=== PATIENT | female | born 1980 | race Two or more races ===

== ENCOUNTER 2025-08-16 15:17 | Inpatient (IN) | payer MEDICAID, OTHER ==
[~2025-08-16] VITALS: Ht 193 cm; Wt 105.4 kg
--- NOTE | 2025-08-16 15:39 | ED.PDOC ---
GI ASSESSMENT HPI Comments 45 y.o female with PMHx of HTN and kidney stones, presents to the ED for a chief complaint of left sided abdominal pain, rectal bleed, nausea and vomiting x 1 week. Patient reports unable to keep anything down and as a results has lost 8 pounds. Patient describes pain as a dull/sharpness sensation that is non radiating and constant. Patient described bleeding as bright red with no clotting or melena noted. She mentions similar symptoms in the past in which she was diagnosed with kidney stones. She denies fever, chills, hematemesis. No substance, alcohol or tobacco use reported. Chief Complaint: Abdominal Pain Time Seen by MD: 15:31 Reviewed Notes: Nurses Notes, Medications, Allergies Allergies: Coded Allergies: Lidocaine (Verified Allergy, Unknown, RASH, 08/16/25) Information Source: Patient Mode of Arrival: Ambulatory Timing: Weeks (1) Duration: Since onset Quality: Aching Vomitus: Hard Stool: Minimal Severity: Moderate Recent: None Recent Hx of: None Pain Location: LUQ, LLQ Modifying Factors: Nothing Associated sign and symptoms: Nausea, Vomiting, Constipation, Abdominal Pain Past Medical History PAST MEDICAL HISTORY: HTN, Kidney Stones Past Medical History (Other): bipolar disorder Surgical History: Cholecystectomy, Hysterectomy, Tubal Ligation SITE MANAGER History: No Pertinent SITE MANAGER History Family History Family History: Family hx of DM Social History Smoker: Non-Smoker Alcohol: Denies ETOH Use Drugs: Denies Drug Use Lives In: Home Constitutional: denies: chills, diaphoresis, fatigue, fever, malaise, sweats, weakness, others EENTM: denies: blurred vision, double vision, ear bleeding, ear discharge, ear drainage, ear pain, ear ringing, eye pain, eye redness, hearing loss, mouth pain, mouth swelling, nasal discharge, nose bleeding, nose congestion, nose pain, photophobia, tearing, throat pain, throat swelling, voice changes, others Respiratory: denies: cough, hemoptysis, orthopnea, SOB at rest, shortness of breath, SOB with excertion, stridor, wheezing, others Cardiovascular: denies: chest pain, dizzy spells, diaphoresis, Dyspnea on exertion, edema, irregular heart beat, left arm pain, lightheadedness, palpitations, PND, syncope, others Gastrointestinal: reports: abdominal pain, constipated, nausea, rectal bleeding , vomiting; denies: abdomen distended, blood streaked bowels, diarrhea, dysphagia, difficulty swallowing, hematemesis, melena, poor appetite, poor fluid intake, rectal pain, others Genitourinary: denies: abnormal vagina bleeding, burning, dyspareunia, dysuria, flank pain, frequency, hematuria, incontinence, pain, , vagina discharge, urgency, others Neurological: denies: dizziness, fainting, headache, left sided numbness, left sided weakness, numbness, paresthesia, pre-existing deficit, right sided numbness, right sided weakness, seizure, speech problems, tingling, tremors, weakness, others Musculoskeletal: denies: back pain, gout, joint pain, joint swelling, muscle pain, muscle stiffness, neck pain, others Integumetry: denies: bruises, change in color, change in hair/nails, dryness, laceration, lesions, lumps, rash, wounds, others Allergic/Immunocompromised: denies: Difficulty Healing, Frequent Infections, Hives, Itching, others Hematologic/Lymphatic: denies: anemia, blood clots, easy bleeding, easy bruising, swollen glands, others Endocrine: denies: excessive hunger, excessive sweating, excessive thirst, excessive urination, flushing, intolerance to cold, intolerance to heat, une xplained weight gain, unexplained weight loss, others Psychiatric: denies: anxiety, bipolar disorder, depression, hopeless, panic disorder, schizophrenia, sleepless, suicidal, others All Other Systems: Reviewed and Negative Physical Exam General Appearance: Moderate Distress HEENT: Normal ENT Inspection, Pharynx Normal, TMs Normal Neck: Full Range of Motion, Non-Tender, Normal, Normal Inspection Respiratory: Chest Non-Tender, Lungs Clear, No Accessory Muscle Use, No Respiratory Distress, Normal Breath Sounds Cardiovascular: No Edema, No JVD, No Murmur, No Gallop, Normal Peripheral Pulses, Regular Rate/Rhythm Breast Exam: Deferred Gastrointestinal: Diffuse, No Organomegaly, No Pulsatile Mass, Normal Bowel Sounds, Soft, Tenderness Genitalia: Deferred Pelvic: Deferred Rectal: Deferred Extremities: No calf tenderness, Normal capillary refill, No pedal edema Musculoskeletal : Apperance: Normal Neurologic: Alert, aircraft technician II-XII nml as Tested, No Motor Deficits, Normal Affect, Normal Mood, No Sensory Deficits Cerebellar Function: Normal Reflexes: Normal Skin: Dry, Normal Color, Warm Lymphatic: No Adenopathy Was a procedure done? Was a procedure done?: No GI differential Dx Differential Diagnosis: Bowel Obstruction, Constipation, Gastritis/PUD, Gastroenteritis, Dehydration, Viral, Anemia, Esophageal Varicies, Stress Ulcer, Kidney Stone X-Ray, Labs, Meds, VS Vital Signs Date Time Temp Pulse Resp B/P (MAP) Pulse Ox O2 Delivery O2 Flow Rate FiO2 08/16/25 15:19 97.8 111 12 121/95 98 97.8 Lab Test 08/16/25 16:28 Range/Units White Blood Count 8.3 4.4-10.8 10^3/uL Red Blood Count 5.19 4.0-5.20 10^6/uL Hemoglobin 15.4 12.2-16.2 g/dL Hematocrit 44.8 36.0-46.0 % Mean Corpuscular Volume 86.2 80.0-100.0 fL Mean Corpuscular Hemoglobin 29.6 28.0-32.0 pg Mean Corpuscular Hemoglobin Concent 34.3 32.0-36.0 g/dL Red Cell Distribution Width 13.4 11.8-14.3 % Platelet Count 309 140-450 10^3/uL Mean Platelet Volume 7.2 6.9-10.8 fL Neutrophils (%) (Auto) 73.2 37.0-80.0 % Lymphocytes (%) (Auto) 18.4 10.0-50.0 % Monocytes (%) (Auto) 7.6 0.0-12.0 % Eosinophils (%) (Auto) 0.0 0.0-7.0 % Basophils (%) (Auto) 0.8 0.0-2.0 % Neutrophils # (Auto) 6.1 1.6-8.6 10 ^3/uL Lymphocytes # (Auto) 1.5 0.4-5.4 10 ^3/uL Monocytes # (Auto) 0.6 0-1.3 10 ^3/uL Eosinophils # (Auto) 0 0-0.8 10 ^3/uL Basophils # (Auto) 0.1 0-0.2 10 ^3/uL Nucleated Red Blood Cells 0.1 % Sodium Level 140 136-145 mmol/L Potassium Level 3.0 L 3.5-5.1 mmol/L Chloride Level 99 98-107 mmol/L Carbon Dioxide Level 29 20-31 mmol/L Anion Gap 12 5-15 Blood Urea Nitrogen 12 9-23 mg/dL Creatinine 1.33 H 0.550-1.02 mg/dL Glomerular Filtration Rate Calc 50 >90 mL/min BUN/Creatinine Ratio 9.0 L 10.0-20.0 Serum Glucose 100 74-106 mg/dL Calcium Level 10.4 8.7-10.4 mg/dL Total Bilirubin 0.4 0.2-1.0 mg/dL Aspartate Amino Transferase (AST) 31 13-40 U/L Alanine Aminotransferase (ALT) 24 7-40 U/L Alkaline Phosphatase 115 46-116 U/L Total Protein 8.0 5.7-8.2 g/dL Albumin 4.6 3.2-4.8 g/dL Lipase 51 12-53 U/L IV Hep-Lock was established The patient's CBC and chemistry panel just show a potassium of 3.0 The patient is being given potassium for the hypokalemia The patient's CAT scan of the abdomen and pelvis shows: IMPRESSION: 1. No acute abdominopelvic abnormality. 2. Nonobstructive left superior renal caliceal stone measuring up to 7 mm. No distal ureteral stone. No hydronephrosis. 3. Mild stool burden. This time, the patient is being admitted to the hospitalist Images Reviewed?: Images reviewed and evaluated by me Time of 1ST Reevaluation: 15:34 Reevaluation 1ST: Unchanged Patient Education/Counseling: Diagnosis, Treatment, Prognosis Family Education/Counseling: No Family Present SEPSIS Sepsis Screen Date sepsis recognized/suspect: Aug 16, 2025 Time Sepsis recognized/suspect: 1522 Recent Procedure: No On Antibiotic Therapy: No Respiratory Rate >20: No Heart Rate >90: Yes Temp<36 C (96.8 F) or >38.3 C: No SBP <90 or MAP <65 mmHG: No New Acute Mental Status Change: No Is the patient on CPAP, BIPAP,: No Physician Orders Urinalysis (08/16/25 15:38) Ct Ab Pel Wo Con-No Oral Or Iv (08/16/25 15:38) Vital Signs Date Time Temp Pulse Resp B/P (MAP) Pulse Ox O2 Delivery O2 Flow Rate FiO2 08/16/25 15:19 97.8 111 12 121/95 98 97.8 Laboratory Tests Test 08/16/25 16:28 White Blood Count 8.3 10^3/uL (4.4-10.8) Departure 1 Departure Time of Disposition: 18:34 Impression: Primary Impression: Intractable abdominal pain Disposition: ADMITTED INPATIENT Admit to: Med Surg Condition: Fair Critical Care Note Critical Care Time?: No Stability Stability form required: Yes Unstable for transfer: ED Physician Assesment (Clinical assesment) I personally scribed for TC ROUSE MD ([email or web address]) on 08/16/25 at 15:39. Electronically submitted by Meseret Be ([facility]). TC ROUSE MD Aug 16, 2025 15:39
[2025-08-16 16:41] LABS: Hematocrit 44.8 % (36.0-46.0); Hemoglobin 15.4 g/dL (12.2-16.2); Mean Corpuscular Hemoglobin 29.6 pg (28.0-32.0); Mean Corpuscular Volume 86.2 fL (80.0-100.0); Nucleated Red Blood Cells % 0.1 %
[2025-08-16 16:57] LABS: Alanine Aminotransferase 24 U/L (7-40); Albumin 4.6 g/dL (3.2-4.8); Alkaline Phosphatase 115 U/L (46-116); Anion Gap 12 (5-15); BUN/Creatinine Ratio 9.0 (10.0-20.0); Bilirubin, Total 0.4 mg/dL (0.2-1.0); Blood Urea Nitrogen 12 mg/dL (9-23); Carbon Dioxide 29 mmol/L (20-31); Chloride 99 mmol/L (98-107); Glucose 100 mg/dL (74-106); Lipase 51 U/L (12-53); Sodium 140 mmol/L (136-145); Total Protein 8.0 g/dL (5.7-8.2)
[2025-08-16 16:58] LABS: Calcium 10.4 mg/dL (8.7-10.4); Potassium 3.0 mmol/L (3.5-5.1)
--- NOTE | 2025-08-16 17:06 | DVH ---
EXAM: CT CT AB PEL WO CON-NO ORAL OR IV INDICATION: left sided abd pain TECHNIQUE: Volumetric multidetector CT images of the abdomen and pelvis were obtained without contrast. All CT scans at this facility use dose modulation, iterative reconstruction, and/or weight based dosing when appropriate to reduce radiation dose to as low as reasonably achievable. COMPARISON: US PELVIC TRANSABDOMINAL ONLY on DOS: 09/12/24 FINDINGS: [LOWER CHEST]: The partially visualized lung bases are clear without a pleural effusion. The cardiac size is normal without pericardial effusion. [LIVER]: Normal hepatic size without suspicious focal lesion. [GALLBLADDER AND BILIARY TREE]: Gallbladder is surgically absent. [SPLEEN]: Unremarkable. [PANCREAS]: Unremarkable. [ADRENAL GLANDS]: Unremarkable [KIDNEYS]: Nonobstructive left superior renal caliceal stone measuring up to 7 mm. No hydronephrosis. No nephroureterolithiasis. No suspicious focal lesion. [BLADDER]: Bladder is decompressed. [REPRODUCTIVE ORGANS]: Hysterectomy. [BOWEL/MESENTERY]: Stomach is normal. No CT evidence of bowel obstruction. Normal appendix. [ASCITES]: Absent [LYMPHADENOPATHY]: No pathologically enlarged lymph nodes by CT size criteria [VASCULATURE]: No aneurysmal dilatation. [ABDOMINAL WALL]: Unremarkable. [MUSCULOSKELETAL]: No acute fracture or aggressive focal osseous lesion. IMPRESSION: 1. No acute abdominopelvic abnormality. 2. Nonobstructive left superior renal caliceal stone measuring up to 7 mm. No distal ureteral stone. No hydronephrosis. 3. Mild stool burden.
[2025-08-16 21:23] LABS: Urine Protein, UAD 2+ (Negative)
[2025-08-16 23:22] VITALS: PULSE 100; RESP 20; O2SAT 97
[2025-08-16] MEDS: ONDANSETRON HCL 4 MG/2 ML VIAL IV PRN (23:46)
[2025-08-17] VITALS (8 sets, daily range): BP systolic 105–124; BP diastolic 54–78; PULSE 77–100; RESP 17–20; TEMP 97.7–98; O2SAT 94–98
[2025-08-17] MEDS: METOCLOPRAMIDE HCL 5MG/ml INJ 2ml VIAL IV ONE (00:10)
[2025-08-17] MEDS: KETOROLAC TROMETH 30 MG/ML 1ML VIAL IV ONE (00:30)
[2025-08-17] MEDS: MORPHINE SULFATE 4 MG/ML SYR/VIAL IV ONE (00:33)
[2025-08-17] MEDS: LORazepam 2MG/ML-1ML VIAL IV ONE (01:45)
[2025-08-17] MEDS ORDERED: HYDROcodone-ACET 10/325MG TAB PO PRN (01:45)
[2025-08-17] MEDS: ACETAMINOPHEN 325 MG TAB PO SCH (01:45)
[2025-08-17] MEDS ORDERED: POTASSIUM CHLORIDE 60 MEQ, LIDOCAINE 1% (LOCAL ANESTH.) 6 ML in SODIUM CHL 0.9% 500 ML IV ONE (01:45)
[2025-08-17] MEDS: SODIUM CHLORIDE 0.9% 1,000 ML IV ONE (02:51)
[2025-08-17] MEDS: MORPHINE SULFATE INJ 2 MG/ml SYRG IV PRN (03:00)
[2025-08-17] MEDS: MORPHINE SULFATE 4 MG/ML SYR/VIAL ONE (03:04)
[2025-08-17] MEDS: SODIUM CHLORIDE 0.9% 1,000 ML IV SCH (04:01)
--- NOTE | 2025-08-17 05:02 | DVHHPRES ---
History of Present Illness Resident Creating Document: BRENDAN DERAS RESIDENT History of Present Illness Lesvia Warner is a 45-year-old female with past medical history of hypertension, bipolar disorder who presented to the hospital with complaints of abdominal pain and urinary urgency since Tuesday. Patient also complains of associated vomiting and decreased appetite. She reports losing 8 lb in the past week. She states that she can not keep any food down. She reports of associated constipation and noticed blood in stool once. She denies any fever cough or diarrhea. PMHx: Hypertension, bipolar disorder PSHx: Cholecystectomy Family history: nonrelevant Social history: denies smoking, alcohol, illicit drugs. Lives with parents Home medication: Wegovy, venlafaxine, Xanax Allergic history: lidocaine Review of Systems Review of Systems General: patient denies fever, fatigue, weaknes, sweating, any recent changes in appetite and weight HEENT: No headaches, visiual changes, hearing loss, tinnitus, nasal congestion and discharge, and sore throat. Cardiovascular: Denies chest pain, palpitations, dyspnea on exertion, orthopnea, or claudication. Respiratory: No cough, and wheezing. Gastrointestinal: complains of abdominal pain and flank pain Genitourinary: complains of urinary urgency Endocrine: No heat or cold intolerance, polydipsia, polyuria, and polyphagia. Neurological: No dizziness, extremity weakness and numbness, tremors, gait disturbance, seizures, and memory impairment. Psychiatric: Denies depression, anxiety,or insomnia. Musculoskeletal: Denies neck pain, stiffness and swelling, back pain, muscle weakness, joint pain, stiffness, swelling, or limited range of motion. Skin: No rashes, itching, skin lesion, changes in hair, nail, skin texture and breast. Hematologic/Lymphatic: Denies easy bruising, bleeding tendencies, or lymph node enlargement. Allergies: Coded Allergies: Lidocaine (Verified Allergy, Unknown, RASH, 08/16/25) Medications Current Medications Medications Dose Ordered Sig/Brown Route Start Time Stop Time Status Last Admin Dose Admin Ondansetron HCl 4 mg Q4HP PRN IV 08/16/25 23:45 08/17/25 00:37 4 MG Ceftriaxone Sodium 50 ml @ 100 mls/hr DAILY@09 IV 08/17/25 09:00 Metoclopramide HCl 5 mg Q8HPRN PRN IV 08/17/25 01:45 Sodium Chloride 1,000 ml @ 125 mls/hr Q8H IV 08/17/25 04:00 08/17/25 04:01 125 MLS/HR Acetaminophen 650 mg Q6HR PO 08/17/25 01:45 Acetaminophen/ Hydrocodone Bitart 1 tab Q6HP PRN PO 08/17/25 01:45 Morphine Sulfate 1 mg Q4HP PRN IV 08/17/25 01:45 08/17/25 03:00 1 MG Pantoprazole Sodium 40 mg DAILY IV 08/17/25 10:00 Clonidine HCl 0.1 mg TID PO 08/17/25 06:00 Prazosin HCl 2 mg Q12HR PO 08/17/25 10:00 Buspirone HCl 10 mg Q12HR PO 08/17/25 10:00 Hydrochlorothiazide 12.5 mg DAILY PO 08/17/25 10:00 Exam Vital Signs Vital Signs Date Time Temp Pulse Resp B/P (MAP) Pulse Ox O2 Delivery O2 Flow Rate FiO2 08/17/25 03:54 77 18 95 Room Air* 0 21 08/17/25 03:00 140/80 08/16/25 23:22 98.1 98.1 Exam General Appearance: Alert, Oriented X3, Cooperative, No acute distress HEENT: Atraumatic, PERRLA, EOMI, Mucous membrane moist/pink Respiratory: Clear to auscultation, Normal air movement Cardiovascular: Regular rate, Normal S1, Normal S2, No murmurs, no chest wall tenderness Abdominal: flank tenderness present, tenderness in the left upper and lower quadrants Extremities: No clubbing, No cyanosis, No edema, Normal pulses, No tenderness/swelling Skin: No rashes, No breakdown, No significant lesion Neuro: Normal gait, Normal speech, Strength at 5/5 X4 ext, Normal tone, Sensation intact, Cranial nerves 3-12 NL, Reflexes 2+ Psych/Mental Status: Mental status NL, Mood NL Labs/Xrays Labs Test 08/16/25 20:57 08/16/25 16:28 Range/Units Urine Color Yellow Yellow Urine Clarity Turbid H Clear Urine pH 6.0 5.0-9.0 Urine Specific [place] 1.033 1.001-1.035 Urine Protein 2+ H Negative Urine Ketones 1+ H Negative Urine Blood 1+ H Negative /uL Urine Nitrite Negative Negative Urine Bilirubin 1+ H Negative Urine Urobilinogen 4 H Negative mg/dL Urine Leukocyte Esterase 2+ Negative /uL Urine RBC 14 0 - 4 /hpf Urine Microscopic WBC 17 H 0-5 /HPF Urine Squamous Epithelial Cells Mod <5 /hpf Urine Bacteria Few H None Seen /hpf Urine Hyaline Casts Few 0 - 2 /lpf Urine Mucus Moderate None Seen Urine Glucose Trace Normal mg/dL White Blood Count 8.3 4.4-10.8 10^3/uL Red Blood Count 5.19 4.0-5.20 10^6/uL Hemoglobin 15.4 12.2-16.2 g/dL Hematocrit 44.8 36.0-46.0 % Mean Corpuscular Volume 86.2 80.0-100.0 fL Mean Corpuscular Hemoglobin 29.6 28.0-32.0 pg Mean Corpuscular Hemoglobin Concent 34.3 32.0-36.0 g/dL Red Cell Distribution Width 13.4 11.8-14.3 % Platelet Count 309 140-450 10^3/uL Mean Platelet Volume 7.2 6.9-10.8 fL Neutrophils (%) (Auto) 73.2 37.0-80.0 % Lymphocytes (%) (Auto) 18.4 10.0-50.0 % Monocytes (%) (Auto) 7.6 0.0-12.0 % Eosinophils (%) (Auto) 0.0 0.0-7.0 % Basophils (%) (Auto) 0.8 0.0-2.0 % Neutrophils # (Auto) 6.1 1.6-8.6 10 ^3/uL Lymphocytes # (Auto) 1.5 0.4-5.4 10 ^3/uL Monocytes # (Auto) 0.6 0-1.3 10 ^3/uL Eosinophils # (Auto) 0 0-0.8 10 ^3/uL Basophils # (Auto) 0.1 0-0.2 10 ^3/uL Nucleated Red Blood Cells 0.1 % Sodium Level 140 136-145 mmol/L Potassium Level 3.0 L 3.5-5.1 mmol/L Chloride Level 99 98-107 mmol/L Carbon Dioxide Level 29 20-31 mmol/L Anion Gap 12 5-15 Blood Urea Nitrogen 12 9-23 mg/dL Creatinine 1.33 H 0.550-1.02 mg/dL Glomerular Filtration Rate Calc 50 >90 mL/min BUN/Creatinine Ratio 9.0 L 10.0-20.0 Serum Glucose 100 74-106 mg/dL Calcium Level 10.4 8.7-10.4 mg/dL Total Bilirubin 0.4 0.2-1.0 mg/dL Aspartate Amino Transferase (AST) 31 13-40 U/L Alanine Aminotransferase (ALT) 24 7-40 U/L Alkaline Phosphatase 115 46-116 U/L Total Protein 8.0 5.7-8.2 g/dL Albumin 4.6 3.2-4.8 g/dL Lipase 51 12-53 U/L SEPSIS Sepsis Screen Date sepsis recognized/suspect: Aug 16, 2025 Time Sepsis recognized/suspect: 2324 Recent Procedure: No On Antibiotic Therapy: No Respiratory Rate >20: No Heart Rate >90: No Temp<36 C (96.8 F) or >38.3 C: No SBP <90 or MAP <65 mmHG: No New Acute Mental Status Change: No Is the patient on CPAP, BIPAP,: No Physician Orders Allergies (08/16/25 23:33) Code Status (08/16/25 23:33) Ondansetron Hcl (Zofran) (08/16/25 23:45) Complete Blood Count (08/17/25 04:00) Npo (Nothing By Mouth) Diet (08/17/25 Breakfast) Condition: Fair (08/16/25 23:33) Admit (08/16/25 23:48) Blood Culture (08/17/25 01:22) Urine Bacterial Culture (08/17/25 01:22) Kidney (08/17/25 01:22) Test, Urine (08/17/25 01:22) Urine Sodium (08/17/25 01:22) Urine Protein/Creatinine Ratio (08/17/25 ) Urine Protein (08/17/25 01:22) Parathyroid Hormone Intact (08/17/25 01:22) Phosphorus (08/17/25 01:40) Drug Screen (08/17/25 01:40) Blood Alcohol (08/17/25 01:40) PTPTT (08/17/25 01:40) Stool Occult Blood (08/17/25 01:40) Magnesium (08/17/25 01:40) Comprehensive Metabolic Panel (08/17/25 04:00) Ceftriaxone 1gm/50ml (Rocephin) (08/17/25 09:00) Metoclopramide Injection (Reglan Injecti (08/17/25 01:45) Potassium Chloride (Potassium Chloride). (08/17/25 01:45) Sodium Chloride 0.9% (08/17/25 04:00) Acetaminophen Tablet (Tylenol Tablet) (08/17/25 01:45) Hydrocodone-Acet 10/325mg Tab (Parker 10/ (08/17/25 01:45) Morphine Sulfate Injection (08/17/25 01:45) Pantoprazole (Protonix) (08/17/25 10:00) Clonidine Hcl Tablet (Catapres Tablet) (08/17/25 06:00) Prazosin Hcl Capsule (Minipres Capsule) (08/17/25 10:00) Buspirone Hcl Tablet (Buspar Tablet) (08/17/25 10:00) Hydrochlorothiazide Tablet (Hydrochlorot (08/17/25 10:00) Vital Signs Date Time Temp Pulse Resp B/P (MAP) Pulse Ox O2 Delivery O2 Flow Rate FiO2 08/17/25 03:54 77 18 95 Room Air* 0 21 08/17/25 03:00 97 16 140/80 08/17/25 01:03 103 18 140/101 08/17/25 00:33 102 20 122/78 08/16/25 23:22 98.1 102 18 132/78 (96) 97 98.1 08/16/25 23:22 100 20 97 Room Air* 0 21 Medications Medications Dose Ordered Sig/Brown Route Start Time Stop Time Status Last Admin Dose Admin Metoclopramide HCl 5 mg ONCE ONCE IV 08/16/25 23:45 08/16/25 23:46 DC 08/17/25 00:10 5 MG Morphine Sulfate 1 mg Q4HP PRN IV 08/17/25 01:45 08/17/25 03:00 1 MG Morphine Sulfate 4 mg ONCE ONCE IV 08/17/25 00:30 08/17/25 00:31 DC 08/17/25 00:33 4 MG Ondansetron HCl 4 mg Q4HP PRN IV 08/16/25 23:45 08/17/25 00:37 4 MG Sodium Chloride 1,000 ml @ 125 mls/hr Q8H IV 08/17/25 04:00 08/17/25 04:01 125 MLS/HR Sodium Chloride 1,000 ml @ 1,000 mls/hr Q1H ONCE IV 08/17/25 01:45 08/17/25 02:44 DC 08/17/25 02:51 1,000 MLS/HR Assessment/Plan Assessment/Plan Assessment and plan Acute complicated UTI JAVY due to VMN History of renal calculi Blood culture, urine culture IV Rocephin Reglan IV fluids Pain management with Tylenol, Parker and morphine Renal ultrasound Urine sodium and protein, protein creatinine ratio Parathyroid hormone, phosphorus Hypokalemia Potassium 3 Repleted Follow up potassium levels History of cervical cancer status post hysterectomy Follow up with PCP on discharge Essential hypertension Continue home medications Target in-hospital blood pressure below 140/90 Bipolar disorder Continue home medications PUD prophylaxis: protonix 40mg DVT prophylaxis: Ambulatory Barriers to discharge: Medical diagnosis and management in progress. Patient lives with family. Independent for ADL. PCP: Dr. Pandey Specialist Relevent To Admission: None Case discussed with Dr. Johnson. Code Status: Full Code. Complex patient care discussion needed. Spend total 33 minutes for bedside assessment, case discussion and management. Plan discussed with: Patient My Orders Orders - BRENDAN DERAS RESIDENT Procedure Category Date Status Time Allergies KASSIDY 08/16/25 In Process 23:33 Code Status CODE 08/16/25 Transmitted 23:33 Ondansetron Hcl PHA 08/16/25 In Process (Zofran) 23:45 Complete Blood Count LAB 08/17/25 Logged 04:00 Npo (Nothing By DIET 08/17/25 Transmitted Mouth) Diet Breakfast Condition: Fair KASSIDY 08/16/25 In Process 23:33 Blood Culture YONATAN 08/17/25 Uncollected 01:22 Urine Bacterial YONATAN 08/17/25 Uncollected Culture 01:22 Kidney US 08/17/25 Logged 01:22 Test, Urine LAB 08/17/25 Logged 01:22 Urine Sodium LAB 08/17/25 Logged 01:22 Urine LAB 08/17/25 Logged Protein/Creatinine Urine Protein LAB 08/17/25 Logged 01:22 Parathyroid Hormone LAB 08/17/25 Logged Intact 01:22 Phosphorus LAB 08/17/25 Logged 01:40 Drug Screen LAB 08/17/25 Logged 01:40 Blood Alcohol LAB 08/17/25 Logged 01:40 PTPTT LAB 08/17/25 Logged 01:40 Stool Occult Blood LAB 08/17/25 Uncollected 01:40 Magnesium LAB 08/17/25 Logged 01:40 Comprehensive LAB 08/17/25 Logged Metabolic Panel 04:00 Ceftriaxone 1gm/50ml PHA 08/17/25 In Process (Rocephin) 09:00 Metoclopramide PHA 08/17/25 In Process Injection (Reglan 01:45 Potassium Chloride PHA 08/17/25 In Process (Potassium Chloride). 01:45 Sodium Chloride 0.9% PHA 08/17/25 In Process 04:00 Acetaminophen Tablet PHA 08/17/25 In Process (Tylenol Tablet) 01:45 Hydrocodone-Acet PHA 08/17/25 In Process 10/325mg Tab (Parker 01:45 Morphine Sulfate PHA 08/17/25 In Process Injection 01:45 Pantoprazole PHA 08/17/25 In Process (Protonix) 10:00 Clonidine Hcl Tablet PHA 08/17/25 In Process (Catapres Tablet) 06:00 Prazosin Hcl Capsule PHA 08/17/25 In Process (Minipres Capsule) 10:00 Buspirone Hcl Tablet PHA 08/17/25 In Process (Buspar Tablet) 10:00 Hydrochlorothiazide PHA 08/17/25 In Process Tablet (Hydrochlorot 10:00 Visit Coding STANDARD RES Billing Provider: KETAN JOHNSON MD Date of Service if different f: Aug 17, 2025 Common Visit Codes: 96459-[id number] INP/OBS CARE (HIGH) Secondary Visit Codes: 83385-[id number] CARE PLAN 30 MINUTES BRENDAN DERAS RESIDENT Aug 17, 2025 05:02 MAZIN FREEMAN DO Aug 19, 2025 07:41 KETAN JOHNSON MD Aug 23, 2025 10:43
[2025-08-17 07:36] LABS: Hematocrit 39.8 % (36.0-46.0); Hemoglobin 13.6 g/dL (12.2-16.2); Mean Corpuscular Hemoglobin 29.4 pg (28.0-32.0); Mean Corpuscular Volume 85.9 fL (80.0-100.0); Nucleated Red Blood Cells % 0.0 %
[2025-08-17 07:55] LABS: INR 1.15 (0.9-1.15); Partial Thromboplastin Time 31.8 SEC (24.5-34.5); Prothrombin Time 12.0 sec (9.3-11.8)
[2025-08-17 08:49] LABS: Alanine Aminotransferase 20 U/L (7-40); Alkaline Phosphatase 101 U/L (46-116); Anion Gap 12 (5-15); BUN/Creatinine Ratio 10.8 (10.0-20.0); Blood Urea Nitrogen 13 mg/dL (9-23); Calcium 8.8 mg/dL (8.7-10.4); Carbon Dioxide 28 mmol/L (20-31); Chloride 101 mmol/L (98-107); Glucose 94 mg/dL (74-106); Magnesium 1.7 mg/dL (1.6-2.6); Sodium 141 mmol/L (136-145); Total Protein 6.4 g/dL (5.7-8.2)
[2025-08-17 08:50] LABS: Albumin 3.8 g/dL (3.2-4.8)
[2025-08-17 08:51] LABS: Bilirubin, Total 0.5 mg/dL (0.2-1.0); Potassium 2.9 mmol/L (3.5-5.1)
--- NOTE | 2025-08-17 10:38 | DVH ---
US KIDNEY COMPARISON: None INDICATION: JAVY TECHNIQUE: Ultrasound exam of the retroperitoneum was performed. FINDINGS: The right kidney is 11.6 cm. The left kidney is 10.2 cm. No collecting system dilatation. The prevoid volume of the bladder measures 80 cc. IMPRESSION: No collecting system dilatation.
[2025-08-17] MEDS: MORPHINE SULFATE 4 MG/ML SYR/VIAL IV PRN (11:09)
[2025-08-17] MEDS: PRAZOSIN HCL 1 MG CAP PO SCH (11:14)
[2025-08-17] MEDS: hydroCHLOROthiazide 25 MG TAB PO SCH (11:15)
[2025-08-17] MEDS: PANTOPRAZOLE 40 MG/10 ML VIAL INJ IV SCH (11:15)
[2025-08-17] MEDS: METOCLOPRAMIDE HCL 5MG/ml INJ 2ml VIAL IV PRN (13:54)
[2025-08-17] MEDS: POTASSIUM CHL 20 Meq TABLET PO SCH (17:59)
[2025-08-17 18:00] LABS: Protein, Urine 39.8 mg/dL (1-14)
[2025-08-17 18:30] LABS: Cannabinoid Screen, Urine Pos (NEGATIVE)
[2025-08-17 19:26] LABS: Amphetamine Screen, Urine Neg (NEGATIVE); Barbiturate Scree,Urine Neg (NEGATIVE); Benzodiazephine Screen, Urine Pos (NEGATIVE); Cocaine Screen, Urine Neg (NEGATIVE); Opiate Scree,Urine Pos (NEGATIVE); Phencyclidine Screen, Urine Neg (NEGATIVE)
[2025-08-18] VITALS (8 sets, daily range): BP systolic 101–131; BP diastolic 57–79; PULSE 80–97; RESP 17–20; TEMP 97–97.9; O2SAT 97–98
[2025-08-18] MEDS: MELATONIN 5 MG TAB PO ONE (21:15)
[2025-08-19] VITALS (7 sets, daily range): BP systolic 110–134; BP diastolic 61–85; PULSE 73–82; RESP 16–20; TEMP 97.3–98.3; O2SAT 97–99
--- NOTE | 2025-08-19 07:37 | DVHPN2 ---
Reviewed: Care Plan, H&P, Labs, Medications, Previous Orders Changes from previous H/P or p: No Changes General: Per HPI Objective Vitals Vital Signs Date Time Temp Pulse Resp B/P (MAP) Pulse Ox O2 Delivery O2 Flow Rate FiO2 08/19/25 06:17 108/61 08/19/25 05:00 97.7 75 17 99 97.7 08/18/25 20:00 Room Air* 0 21 Intake/Output Intake and Output 08/19/25 07:00 Intake Total 225 ml Balance 225 ml Intake Oral 225 ml # Voids 3 Medications Current Medications Medications Dose Ordered Sig/Brown Route Start Time Stop Time Status Last Admin Dose Admin Ondansetron HCl 4 mg Q4HP PRN IV 08/16/25 23:45 08/18/25 11:08 4 MG Ceftriaxone Sodium 50 ml @ 100 mls/hr DAILY@09 IV 08/17/25 09:00 08/18/25 11:10 100 MLS/HR Metoclopramide HCl 5 mg Q8HPRN PRN IV 08/17/25 01:45 08/17/25 21:47 5 MG Sodium Chloride 1,000 ml @ 125 mls/hr Q8H IV 08/17/25 04:00 08/19/25 05:15 125 MLS/HR Acetaminophen 650 mg Q6HR PO 08/17/25 01:45 08/19/25 05:16 650 MG Acetaminophen/ Hydrocodone Bitart 1 tab Q6HP PRN PO 08/17/25 01:45 Pantoprazole Sodium 40 mg DAILY IV 08/17/25 10:00 08/18/25 11:10 40 MG Clonidine HCl 0.1 mg TID PO 08/17/25 06:00 08/19/25 05:17 0.1 MG Prazosin HCl 2 mg Q12HR PO 08/17/25 10:00 08/18/25 21:20 2 MG Buspirone HCl 10 mg Q12HR PO 08/17/25 10:00 08/18/25 21:16 10 MG Hydrochlorothiazide 12.5 mg DAILY PO 08/17/25 10:00 08/18/25 11:11 12.5 MG Morphine Sulfate 1 mg Q4HP PRN IV 08/17/25 09:45 08/18/25 04:49 1 MG Laboratory Results Laboratory Tests 08/17/25 07:24 08/18/25 05:02 Urinalysis Test 08/16/25 20:57 08/17/25 17:32 08/17/25 17:34 08/17/25 17:35 Urine Color Yellow (Yellow) Urine Clarity Turbid (Clear) H Urine pH 6.0 (5.0-9.0) Urine Specific [place] 1.033 (1.001-1.035) Urine Protein 2+ (Negative) H Urine Ketones 1+ (Negative) H Urine Blood 1+ /uL (Negative) H Urine Nitrite Negative (Negative) Urine Bilirubin 1+ (Negative) H Urine Urobilinogen 4 mg/dL (Negative) H Urine Leukocyte Esterase 2+ /uL (Negative) Urine RBC 14 /hpf (0 - 4) Urine Microscopic WBC 17 /HPF (0-5) H Urine Squamous Epithelial Cells Mod /hpf (<5) Urine Bacteria Few /hpf (None Seen) H Urine Hyaline Casts Few /lpf (0 - 2) Urine Mucus Moderate (None Seen) Urine Glucose Trace mg/dL (Normal) Urine Sodium 73 mmol/L (40-220) Urine Creatinine 252.70 mg/dL (30.0-125.0) H Urine Protein/Creatinine Ratio 0.16 Urine Total Protein 39.8 mg/dL (1-14) H Urine Test Negative (Negative) Microbiology Microbiology Date/Time Source Procedure Growth Status 08/17/25 09:00 Blood Blood Culture - Preliminary NO GROWTH AFTER 24 HOURS OF INCUBATION. Resulted 08/16/25 20:57 Voided Urine Urine Culture - Preliminary Resulted Assessment/Plan Assessment/Plan TimmyLesvia is a 45-year-old female with past medical history of hypertension, bipolar disorder who presented to the hospital with complaints of abdominal pain and urinary urgency since Tuesday. Patient also complains of associated vomiting and decreased appetite. She reports losing 8 lb in the past week. She states that she can not keep any food down. She reports of associated constipation and noticed blood in stool once. She denies any fever cough or diarrhea. JAVY due to [facility] History of renal calculi Blood culture, urine culture IV Rocephin Reglan IV fluids Pain management with Tylenol, [place] and morphine Renal ultrasound Urine sodium and protein, protein creatinine ratio Parathyroid hormone, phosphorus Hypokalemia Potassium 3 Repleted Follow up potassium levels History of cervical cancer status post hysterectomy Follow up with PCP on discharge Essential hypertension Continue home medications Target in-hospital blood pressure below 140/90 Bipolar disorder Continue home medications 08/19/25 improving still has abd pain, advancing diet consult to urology Plan discussed with: Patient Date of Service: Aug 18, 2025 Billing Provider: MAZIN FREEMAN DO Common Visit Codes: [id number] INP/OBS CARE(HIGH) MAZIN FREEMAN DO Aug 19, 2025 07:37
[2025-08-19] MEDS: SODIUM CHLORIDE 0.9% 1,000 ML IV ONE (08:23)
[2025-08-19] MEDS ORDERED: BREX1TAB4 PO (08:36)
[2025-08-19] MEDS ORDERED: ATOM25CA PO (08:36)
[2025-08-19] MEDS ORDERED: ALPR1TAB7 PO (08:36)
[2025-08-19] MEDS ORDERED: VENL225T20 PO (08:36)
[2025-08-19] MEDS ORDERED: LUMA42CA PO (08:36)
[2025-08-19] MEDS ORDERED: HYDR-3682 PO (08:36)
[2025-08-19] MEDS: ALPRAZolam 0.5 MG TAB PO SCH (09:34)
[2025-08-19] MEDS ORDERED: hydrOXYzine 25 MG TAB or CAP PO PRN (16:15)
[2025-08-19] MEDS: SODIUM CHLORIDE 0.9% 1,000 ML IV SCH (16:36)
[2025-08-19] MEDS ORDERED: ACETAMINOPHEN 325 MG TAB PO PRN (16:45)
--- NOTE | 2025-08-19 16:55 | DVHPN2 ---
Subjective Patient reports her abdominal pain to be in her left upper quadrant, reporting it to be mild now. Reviewed: Care Plan, H&P, Labs, Medications, Previous Orders Changes from previous H/P or p: No Changes General: Per HPI Objective Vitals Vital Signs Date Time Temp Pulse Resp B/P (MAP) Pulse Ox O2 Delivery O2 Flow Rate FiO2 08/19/25 13:49 127/85 08/19/25 13:12 97.7 80 20 99 97.7 08/19/25 08:00 Room Air* 0 21 Intake/Output Intake and Output 08/19/25 07:00 Intake Total 225 ml Balance 225 ml Intake Oral 225 ml # Voids 3 General Appearance: Alert, Oriented X3, Cooperative, mild distress HEENT: Atraumatic, PERRLA Lungs: Clear to auscultation, Normal air movement Cardiovascular: Normal S1, Normal S2 Abdomen: Normal bowel sounds, Soft, No tenderness, No hepatospenomegaly, No masses Musculoskeletal: Normal sensory function, Normal motor function Neuro: Normal gait, Normal speech Skin: Dry, Intact Psych/Mental Status: Mental status NL, Mood NL Medications Current Medications Medications Dose Ordered Sig/Brown Route Start Time Stop Time Status Last Admin Dose Admin Ondansetron HCl 4 mg Q4HP PRN IV 08/16/25 23:45 08/18/25 11:08 4 MG Ceftriaxone Sodium 50 ml @ 100 mls/hr DAILY@09 IV 08/17/25 09:00 08/19/25 09:28 100 MLS/HR Acetaminophen/ Hydrocodone Bitart 1 tab Q6HP PRN PO 08/17/25 01:45 Pantoprazole Sodium 40 mg DAILY IV 08/17/25 10:00 08/19/25 09:29 40 MG Clonidine HCl 0.1 mg TID PO 08/17/25 06:00 08/19/25 13:49 0.1 MG Prazosin HCl 2 mg Q12HR PO 08/17/25 10:00 08/19/25 09:35 2 MG Buspirone HCl 10 mg Q12HR PO 08/17/25 10:00 08/19/25 09:32 10 MG Hydrochlorothiazide 12.5 mg DAILY PO 08/17/25 10:00 08/19/25 09:33 12.5 MG Morphine Sulfate 1 mg Q4HP PRN IV 08/17/25 09:45 08/18/25 04:49 1 MG Alprazolam 1 mg DAILY PO 08/19/25 10:00 08/19/25 09:34 1 MG Sodium Chloride 1,000 ml @ 75 mls/hr [id number] IV 08/19/25 16:15 08/19/25 16:36 75 MLS/HR Venlafaxine HCl 225 mg DAILY PO 08/20/25 10:00 Hydroxyzine Pamoate 25 mg Q8HP PRN PO 08/19/25 16:15 Acetaminophen 650 mg Q6HR PRN PO 08/19/25 16:45 Laboratory Results Laboratory Tests 08/17/25 07:24 08/18/25 05:02 Urinalysis Test 08/16/25 20:57 08/17/25 17:32 08/17/25 17:34 08/17/25 17:35 Urine Color Yellow (Yellow) Urine Clarity Turbid (Clear) H Urine pH 6.0 (5.0-9.0) Urine Specific [place] 1.033 (1.001-1.035) Urine Protein 2+ (Negative) H Urine Ketones 1+ (Negative) H Urine Blood 1+ /uL (Negative) H Urine Nitrite Negative (Negative) Urine Bilirubin 1+ (Negative) H Urine Urobilinogen 4 mg/dL (Negative) H Urine Leukocyte Esterase 2+ /uL (Negative) Urine RBC 14 /hpf (0 - 4) Urine Microscopic WBC 17 /HPF (0-5) H Urine Squamous Epithelial Cells Mod /hpf (<5) Urine Bacteria Few /hpf (None Seen) H Urine Hyaline Casts Few /lpf (0 - 2) Urine Mucus Moderate (None Seen) Urine Glucose Trace mg/dL (Normal) Urine Sodium 73 mmol/L (40-220) Urine Creatinine 252.70 mg/dL (30.0-125.0) H Urine Protein/Creatinine Ratio 0.16 Urine Total Protein 39.8 mg/dL (1-14) H Urine Test Negative (Negative) Microbiology Microbiology Date/Time Source Procedure Growth Status 08/17/25 09:00 Blood Blood Culture - Preliminary NO GROWTH AFTER 48 HOURS OF INCUBATION. Resulted 08/16/25 20:57 Voided Urine Urine Culture - Final Complete Labs and/or images reviewed: Labs reviewed by me, Image(s) reviewed by me Assessment/Plan Assessment/Plan Impression: -abdominal pain, questionable gastroenteritis -nonobstructive nephrolithiasis -hypokalemia -intractable nausea and vomiting -obesity -bipolar disorder -anxiety disorder Plan: -advance diet -urology consultation pending -potassium replacement -continue current antibiotic therapy -PPI -restart antidepressants, anxiolytics -repeat labs in a.m. Total time spent with patient discussing and formulating plan of care: 35 minutes. This medical document was created using an electronic medical record system with [employer] dictation system. Although this document has been carefully reviewed, there may still be some phonetic and typographical errors. These areas are purely typographical due to imperfections of the software programs, and do not reflect any compromise in the patient's medical care. Plan discussed with: Patient, Other (RN) My Orders Orders - SONNY SAUNDERS NP Procedure Category Date Status Time * Urology Consult CONS 08/19/25 Transmitted 16:09 Sodium Chloride 0.9% PHA 08/19/25 In Process 16:15 Venlafaxine Xr PHA 08/20/25 In Process (Effexor Xr) 10:00 Hydroxyzine Oral PHA 08/19/25 In Process (Vistaril Oral) 16:15 Basic Metabolic Panel LAB 08/20/25 Verified 04:00 Magnesium LAB 08/20/25 Verified 04:00 Regular Diet DIET 08/19/25 Verified Dinner Acetaminophen Tablet PHA 08/19/25 In Process (Tylenol Tablet) 16:45 Date of Service: Aug 19, 2025 Billing Provider: SONNY SAUNDERS NP Common Visit Codes: [id number] INP/OBS CARE(HIGH) SONNY SAUNDERS NP Aug 19, 2025 16:55
[2025-08-20 01:00] VITALS: BP 108/75; PULSE 71; RESP 16; TEMP 98.1; O2SAT 96
[2025-08-20 05:00] VITALS: BP 116/80; PULSE 76; RESP 16; TEMP 98.2; O2SAT 97
[2025-08-20 06:32] LABS: Chloride 105 mmol/L (98-107)
[2025-08-20 06:33] LABS: Anion Gap 10 (5-15); Carbon Dioxide 27 mmol/L (20-31); Sodium 142 mmol/L (136-145)
[2025-08-20 06:39] LABS: Glucose 84 mg/dL (74-106)
[2025-08-20 06:48] LABS: BUN/Creatinine Ratio 6.4 (10.0-20.0); Blood Urea Nitrogen < 5 mg/dL (9-23); Calcium 8.3 mg/dL (8.7-10.4); Magnesium 1.4 mg/dL (1.6-2.6); Potassium 2.9 mmol/L (3.5-5.1)
[2025-08-20 09:16] VITALS: BP 131/74; PULSE 69; RESP 20; TEMP 97.8; O2SAT 97
[2025-08-20] MEDS: POTASSIUM EFFERVESENT TAB 25 MEQ PO SCH (12:48)
[2025-08-20] MEDS: MAGNESIUM SULFATE 1GM/100ML 100 ML IV SCH (12:53)
--- NOTE | 2025-08-20 13:06 | DVHDS2 ---
Discharge Summary Date of Admission Aug 16, 2025 at 23:33 Date of Discharge: Aug 20, 2025 Admitting Diagnosis Acute complicated UTI Labs/Diagnostic Data: Laboratory Results Test 08/20/25 05:11 08/17/25 17:35 08/17/25 17:34 08/17/25 17:32 Sodium Level 142 mmol/L (136-145) Potassium Level 2.9 mmol/L (3.5-5.1) Chloride Level 105 mmol/L (98-107) Carbon Dioxide Level 27 mmol/L (20-31) Anion Gap 10 (5-15) Blood Urea Nitrogen < 5 mg/dL (9-23) Creatinine 0.78 mg/dL (0.550-1.02) Glomerular Filtration Rate Calc 95 mL/min (>90) BUN/Creatinine Ratio 6.4 (10.0-20.0) Serum Glucose 84 mg/dL (74-106) Calcium Level 8.3 mg/dL (8.7-10.4) Magnesium Level 1.4 mg/dL (1.6-2.6) Urine Test Negative (Negative) Urine Creatinine 252.70 mg/dL (30.0-125.0) Urine Protein/Creatinine Ratio 0.16 Urine Total Protein 39.8 mg/dL (1-14) Urine Sodium 73 mmol/L (40-220) Test 08/17/25 17:30 08/17/25 07:24 08/16/25 20:57 08/16/25 16:28 Urine Opiates Screen Pos (NEGATIVE) Urine Fentanyl Screen Neg (NEGATIVE) Urine Barbiturates Screen Neg (NEGATIVE) Urine Phencyclidine Screen Neg (NEGATIVE) Urine Amphetamines Screen Neg (NEGATIVE) Urine Benzodiazepines Screen Pos (NEGATIVE) Urine Cocaine Screen Neg (NEGATIVE) Urine Cannabinoids Screen Pos (NEGATIVE) White Blood Count 9.4 10^3/uL (4.4-10.8) Red Blood Count 4.63 10^6/uL (4.0-5.20) Hemoglobin 13.6 g/dL (12.2-16.2) Hematocrit 39.8 % (36.0-46.0) Mean Corpuscular Volume 85.9 fL (80.0-100.0) Mean Corpuscular Hemoglobin 29.4 pg (28.0-32.0) Mean Corpuscular Hemoglobin Concent 34.2 g/dL (32.0-36.0) Red Cell Distribution Width 13.2 % (11.8-14.3) Platelet Count 235 10^3/uL (140-450) Mean Platelet Volume 7.1 fL (6.9-10.8) Neutrophils (%) (Auto) 77.6 % (37.0-80.0) Lymphocytes (%) (Auto) 14.4 % (10.0-50.0) Monocytes (%) (Auto) 7.6 % (0.0-12.0) Eosinophils (%) (Auto) 0.0 % (0.0-7.0) Basophils (%) (Auto) 0.4 % (0.0-2.0) Neutrophils # (Auto) 7.3 10 ^3/uL (1.6-8.6) Lymphocytes # (Auto) 1.4 10 ^3/uL (0.4-5.4) Monocytes # (Auto) 0.7 10 ^3/uL (0-1.3) Eosinophils # (Auto) 0 10 ^3/uL (0-0.8) Basophils # (Auto) 0 10 ^3/uL (0-0.2) Nucleated Red Blood Cells 0.0 % Prothrombin Time 12.0 sec (9.3-11.8) Prothrombin Time INR 1.15 (0.9-1.15) Activated Partial Thromboplast Time 31.8 SEC (24.5-34.5) Phosphorus Level 3.5 mg/dL (2.4-5.1) Total Bilirubin 0.5 mg/dL (0.2-1.0) Aspartate Amino Transferase (AST) 29 U/L (13-40) Alanine Aminotransferase (ALT) 20 U/L (7-40) Alkaline Phosphatase 101 U/L (46-116) Total Protein 6.4 g/dL (5.7-8.2) Albumin 3.8 g/dL (3.2-4.8) Parathyroid Hormone (Intact) 116.0 pg/mL (18.4-80.1) Plasma/Serum Blood Alcohol < 3.0 mg/dL (<10) Urine Color Yellow (Yellow) Urine Clarity Turbid (Clear) Urine pH 6.0 (5.0-9.0) Urine Specific [place] 1.033 (1.001-1.035) Urine Protein 2+ (Negative) Urine Ketones 1+ (Negative) Urine Blood 1+ /uL (Negative) Urine Nitrite Negative (Negative) Urine Bilirubin 1+ (Negative) Urine Urobilinogen 4 mg/dL (Negative) Urine Leukocyte Esterase 2+ /uL (Negative) Urine RBC 14 /hpf (0 - 4) Urine Microscopic WBC 17 /HPF (0-5) Urine Squamous Epithelial Cells Mod /hpf (<5) Urine Bacteria Few /hpf (None Seen) Urine Hyaline Casts Few /lpf (0 - 2) Urine Mucus Moderate (None Seen) Urine Glucose Trace mg/dL (Normal) Lipase 51 U/L (12-53) Other Laboratory Tests 08/20/25 05:11 08/17/25 07:24 Brief Hx & Hospital Course: History of Present Illness Lesvia Warner is a 45-year-old female with past medical history of hypertension, bipolar disorder who presented to the hospital with complaints of abdominal pain and urinary urgency since Tuesday. Patient also complains of associated vomiting and decreased appetite. She reports losing 8 lb in the past week. She states that she can not keep any food down. She reports of associated constipation and noticed blood in stool once. She denies any fever cough or diarrhea. Course of hospitalization: Patient was given bowel rest, aggressive IV hydration as well as antibiotic therapy. Patient's abdominal pain has improved. Once I took over care from Dr. Barbosa, I appreciated the patient's pain was noted to be in the left upper quadrant, not left flank pain. CT scan did show nonobstructive nephrolithiasis. Discussion was made with the patient regarding future plans to treat this. Patient was noted to have UTI on urinalysis with the patient remaining free of fevers as well as leukocytosis. Patient will be discharged home on antibiotic therapy given she is able to tolerate oral intake without any issues. She will be continued on ciprofloxacin 500 mg p.o. b.i.d. for an additional five days. Once the patient's past potassium and magnesium has been repleted today with repeat lab work, she will be discharged home. She is instructed to follow up with her psychiatrist was PCP in 1-2 weeks. Patient was agreeable with discharge plan. All questions answered. Physical examination General: Alert and Oriented x3. No acute distress. Well-nourished. Eyes: EOMI. Anicteric. HENT: Moist mucous membranes. Lungs: Clear to auscultation bilaterally. No accessory muscle use. Cardiovascular: Regular rate and rhythm. No murmur. No JVD. Abdomen: Soft, non-tender and non-distended. No palpable masses. Extremities: No edema. Non-tender. Skin: No rashes or lesions. Warm. Neurologic: No focal neurological deficits. CN II-XII grossly intact, but not individually tested. Psychiatric: Cooperative. Appropriate mood and affect. Total time spent with patient discussing and formulating plan of care: 35 minutes. This medical document was created using an electronic medical record system with [employer] system. Although this document has been carefully reviewed, there may still be some phonetic and typographical errors. These areas are purely typographical due to imperfections of the software programs, and do not reflect any compromise in the patient's medical care. Condition at Discharge: Fair Final Diagnosis/Problems List -abdominal pain, questionable gastroenteritis -nonobstructive nephrolithiasis -hypokalemia -intractable nausea and vomiting -obesity -bipolar disorder -anxiety disorder -complicated cystitis Discharge Disposition: Home Discharge Instruct/Medications Diet: Regular Activity: No Restrictions, As Tolerated Follow Up/Referral: PCP in 1-2 weeks Psychiatry at next scheduled appointment Medications: Ciprofloxacin 500 mg p.o. b.i.d. x5 days Continue all home medications Scheduled Alprazolam (Alprazolam), 1 MG PO DAILY, (Reported) Atomoxetine Hydrochloride (Strattera), 1 CAP PO DAILY, (Reported) Brexpiprazole (Rexulti), 2 MG PO QPM, (Reported) Hydroxyzine Hcl (Hydroxyzine Hcl), 25 MG PO DAILY, (Reported) Lumateperone Tosylate (Caplyta), 42 MG PO QPM, (Reported) Venlafaxine Hcl (Venlafaxine Hcl Er), 225 MG PO DAILY, (Reported) 36 Discharge Statement: "Patient was advised to return to the ER or call 911 if any headaches, dizziness, shortness of breath, chest pain, abdominal pain, bleeding, fevers, or worsening of medical condition. Patient was counseled about treatment plan, medications, possible side effects, patientverbalized understanding. All questions were answered to the best of my ability. This discharge took greater then 30 minutes in planning, reviewing documentation, counseling the patient, and discussing with other team members." ASSESSMENT ASSESSMENT Assessment Date of Service: Aug 20, 2025 Billing Provider: SONNY SAUNDERS NP Common Visit Codes: [id number] DISCH DAY >30min SONNY SAUNDERS NP Aug 20, 2025 13:06
[2025-08-20] MEDS ORDERED: CIP500T PO (13:08)
[2025-08-20 13:24] VITALS: BP 127/86; PULSE 77; RESP 20; TEMP 97.7; O2SAT 98
[2025-08-20] MEDS: VENLAFAXINE HCL 37.5mg XR cap PO SCH (13:53)
[2025-08-20] MEDS: MAGNESIUM SULFATE 1GM/100ML 100 ML IV ONE (14:03)
[2025-08-20 16:56] LABS: Potassium 3.4 mmol/L (3.5-5.1)
[2025-08-20 16:59] LABS: Magnesium 2.2 mg/dL (1.6-2.6)
[2025-08-20 17:11] VITALS: BP 124/83; PULSE 83; RESP 18; TEMP 97.8; O2SAT 95
[2025-08-20] MEDS: POTASSIUM EFFERVESENT TAB 25 MEQ PO ONE (18:43)
== END 2025-08-20 19:04 | disposition home or self-care (01) | DRG 249 ==
LOC: ER 15:17 → OVERFLOW 23:33 → EAST 08-17 02:36
PROVIDERS: ADMIT Nurse Practitioner Acute Care; ATTEND Nurse Practitioner Acute Care
DX: A08.4 Viral intestinal infection, unspecified (principal); N17.0 Acute kidney failure with tubular necrosis; N30.90 Cystitis, unspecified without hematuria; I10 Essential (primary) hypertension; F31.9 Bipolar disorder, unspecified; E66.9 Obesity, unspecified; E87.6 Hypokalemia; F41.9 Anxiety disorder, unspecified; Z68.27 Body mass index [BMI] 27.0-27.9, adult; N20.0 Calculus of kidney; Z90.49 Acquired absence of other specified parts of digestive tract; Z90.710 Acquired absence of both cervix and uterus; Z98.51 Tubal ligation status; Z88.8 Allergy status to other drugs, medicaments and biological substances; Z83.3 Family history of diabetes mellitus; Z85.41 Personal history of malignant neoplasm of cervix uteri
CPT/HCPCS: 36415; 74176; 76775; 80048; 80053; 80307; 80320; 81001; 81025; 82570; 83690; 83735; 83970; 84100; 84132; 84156; 84300; 85025; 85610; 85730; 87040; 87086; G0378; J1885; J2003; J2405; J2470

== ENCOUNTER 2025-08-26 11:06 | Emergency (ER) | payer MEDICAID ==
[~2025-08-26] VITALS: Ht 162.6 cm; Wt 100.9 kg
[~2025-08-26 11:06] MED LIST: ALPR1TAB7 PO; ATOM25CA PO; BREX1TAB4 PO; CIP500T PO; HYDR-3682 PO; LUMA42CA PO; VENL225T20 PO
--- NOTE | 2025-08-26 11:41 | ED.PDOC ---
GI ASSESSMENT HPI Comments 45 year old female presents to the ED with a chief complaint of nausea/vomiting onset 1 week. Patient was discharged from [facility] on 08/20/25 with a diagnosis of nonobstructive nephrolithiasis and complicated cystitis with a prescription of Ciprofloxacin, states symptoms have not improved since she was discharged. Patient is not able to eat or drink due to nausea, vomiting, Lt flank pain, headache. She has been complaint with medication. Went to discharge clinic this morning, was advised to come to ED for possible dehydration. Denies fever, chills, chest pain, shortness of breath, hematuria, hematemesis, dizziness. No other symptoms or modifying factors present at this time. Chief Complaint: Nausea/Vomiting Time Seen by MD: 11:35 Reviewed Notes: Medications, Allergies Allergies: Coded Allergies: Lidocaine (Verified Allergy, Unknown, RASH, 08/16/25) Home Meds Active Scripts Ciprofloxacin Hydrochloride (Ciprofloxacin HCl) 500 Mg Tab, 500 MG PO BID for 5 Days, #10 TAB Prov:SONNY SAUNDERS KETTLE CHIPPER 08/20/25 Reported Medications Alprazolam (Alprazolam) 1 Mg Tab, 1 MG PO DAILY, TAB 08/19/25 Atomoxetine Hydrochloride (Strattera) 25 Mg Cap, 1 CAP PO DAILY, #30 CAP 1 Refill 08/19/25 Lumateperone Tosylate (Caplyta) 42 Mg Cap, 42 MG PO QPM, CAP 08/19/25 Brexpiprazole (Rexulti) 2 Mg Tab, 2 MG PO QPM, TAB 08/19/25 Venlafaxine Hcl (Venlafaxine Hcl Er) 225 Mg Tab, 225 MG PO DAILY, TAB 08/19/25 Hydroxyzine Hcl (Hydroxyzine Hcl) 25 Mg Tab, 25 MG PO DAILY for 30 Days, MG 08/19/25 Information Source: Patient Mode of Arrival: Ambulatory Timing: Days Duration: Since onset Prehospital treatment: None Quality: Sharp Severity: Moderate Recent: Antibiotics Recent Hx of: None Pain Location: Other Modifying Factors: Nothing Associated sign and symptoms: Nausea, Vomiting Past Medical History PAST MEDICAL HISTORY: HTN, Kidney Stones Surgical History: Cholecystectomy, Hysterectomy, Tubal Ligation EGG BREAKER History: No Pertinent EGG BREAKER History Family History Family History: Family hx of DM Social History Smoker: Non-Smoker Alcohol: Denies ETOH Use Drugs: Denies Drug Use Lives In: Home Constitutional: denies: chills, diaphoresis, fatigue, fever, malaise, sweats, weakness, others EENTM: denies: blurred vision, double vision, ear bleeding, ear discharge, ear drainage, ear pain, ear ringing, eye pain, eye redness, hearing loss, mouth pain, mouth swelling, nasal discharge, nose bleeding, nose congestion, nose pain, photophobia, tearing, throat pain, throat swelling, voice changes, others Respiratory: denies: cough, hemoptysis, orthopnea, SOB at rest, shortness of breath, SOB with excertion, stridor, wheezing, others Cardiovascular: denies: chest pain, dizzy spells, diaphoresis, Dyspnea on exertion, edema, irregular heart beat, left arm pain, lightheadedness, palpitations, PND, syncope, others Gastrointestinal: reports: nausea, poor appetite, poor fluid intake, vomiting; denies: abdomen distended, abdominal pain, blood streaked bowels, constipated, diarrhea, dysphagia, difficulty swallowing, hematemesis, melena, rectal bleeding, rectal pain, others Genitourinary: reports: flank pain (LT); denies: abnormal vagina bleeding, burning, dyspareunia, dysuria, frequency, hematuria, incontinence, pain, , vagina discharge, urgency, others Neurological: reports: headache; denies: dizziness, fainting, left sided numbness, left sided weakness, numbness, paresthesia, pre-existing deficit, right sided numbness, right sided weakness, seizure, speech problems, tingling, tremors, weakness, others Musculoskeletal: denies: back pain, gout, joint pain, joint swelling, muscle pain, muscle stiffness, neck pain, others Integumetry: denies: bruises, change in color, change in hair/nails, dryness, laceration, lesions, lumps, rash, wounds, others Allergic/Immunocompromised: denies: Difficulty Healing, Frequent Infections, Hives, Itching, others Hematologic/Lymphatic: denies: anemia, blood clots, easy bleeding, easy bruising, swollen glands, others Endocrine: denies: excessive hunger, excessive sweating, excessive thirst, excessive urination, flushing, intolerance to cold, intolerance to heat, unexplained weight gain, unexplained weight loss, others Psychiatric: denies: anxiety, bipolar disorder, depression, hopeless, panic disorder, schizophrenia, sleepless, suicidal, others All Other Systems: Reviewed and Negative Physical Exam General Appearance: Moderate Distress, Normal HEENT: Normal ENT Inspection, Pharynx Normal, TMs Normal Neck: Full Range of Motion, Non-Tender, Normal, Normal Inspection Respiratory: Chest Non-Tender, Lungs Clear, No Accessory Muscle Use, No Respi ratory Distress, Normal Breath Sounds Cardiovascular: No Edema, No JVD, No Murmur, No Gallop, Normal Peripheral Pulses, Regular Rate/Rhythm Breast Exam: Deferred Gastrointestinal: No Organomegaly, Non Tender, No Pulsatile Mass, Normal Bowel Sounds, Soft Genitalia: Deferred Pelvic: Deferred Rectal: Deferred Extremities: No calf tenderness, Normal capillary refill, Normal inspection, Normal range of motion, Non-tender, No pedal edema Musculoskeletal : Apperance: Normal Neurologic: Alert, dump truck driver II-XII nml as Tested, No Motor Deficits, Normal Affect, Normal Mood, No Sensory Deficits Cerebellar Function: Normal Reflexes: Normal Skin: Dry, Normal Color, Warm Peripheral Pulses: 3+ Radial (R), 3+ Radial (L) Lymphatic: No Adenopathy Was a procedure done? Was a procedure done?: No GI differential Dx Differential Diagnosis: Constipation, Diverticular disease, Esophagitis, Gastritis/PUD, Gastroenteritis X-Ray, Labs, Meds, VS Vital Signs Date Time Temp Pulse Resp B/P (MAP) Pulse Ox O2 Delivery O2 Flow Rate FiO2 08/26/25 15:00 98.1 88 17 138/75 (96) 97 98.1 08/26/25 12:10 98.6 99 16 109/72 (84) 95 98.6 08/26/25 11:10 98.4 108 20 99/79 98 98.4 Lab Test 08/26/25 12:30 08/26/25 11:41 08/26/25 11:25 Range/Units Urine Color Yellow Yellow Urine Clarity Turbid H Clear Urine pH 5.5 5.0-9.0 Urine Specific [place] 1.034 1.001-1.035 Urine Protein 1+ H Negative Urine Ketones 1+ H Negative Urine Blood Negative Negative /uL Urine Nitrite Negative Negative Urine Bilirubin 1+ H Negative Urine Urobilinogen Normal Negative mg/dL Urine Leukocyte Esterase Negative Negative /uL Urine RBC 1 0 - 4 /hpf Urine Microscopic WBC 7 H 0-5 /HPF Urine Squamous Epithelial Cells Few <5 /hpf Urine Bacteria Mod H None Seen /hpf Urine Hyaline Casts Few 0 - 2 /lpf Urine Mucus Few None Seen Urine Glucose Normal Normal mg/dL Lactic Acid Level 1.2 0.4-2.0 mmol/L White Blood Count 7.3 4.4-10.8 10^3/uL Red Blood Count 4.84 4.0-5.20 10^6/uL Hemoglobin 14.2 12.2-16.2 g/dL Hematocrit 41.5 36.0-46.0 % Mean Corpuscular Volume 85.8 80.0-100.0 fL Mean Corpuscular Hemoglobin 29.4 28.0-32.0 pg Mean Corpuscular Hemoglobin Concent 34.3 32.0-36.0 g/dL Red Cell Distribution Width 14.2 11.8-14.3 % Platelet Count 229 140-450 10^3/uL Mean Platelet Volume 7.3 6.9-10.8 fL Neutrophils (%) (Auto) 85.9 H 37.0-80.0 % Lymphocytes (%) (Auto) 6.6 L 10.0-50.0 % Monocytes (%) (Auto) 7.4 0.0-12.0 % Eosinophils (%) (Auto) 0.0 0.0-7.0 % Basophils (%) (Auto) 0.1 0.0-2.0 % Neutrophils # (Auto) 6.2 1.6-8.6 10 ^3/uL Lymphocytes # (Auto) 0.5 0.4-5.4 10 ^3/uL Monocytes # (Auto) 0.5 0-1.3 10 ^3/uL Eosinophils # (Auto) 0 0-0.8 10 ^3/uL Basophils # (Auto) 0 0-0.2 10 ^3/uL Nucleated Red Blood Cells 0.0 % Sodium Level 136 # 136-145 mmol/L Potassium Level 3.5 3.5-5.1 mmol/L Chloride Level 100 98-107 mmol/L Carbon Dioxide Level 26 20-31 mmol/L Anion Gap 10 5-15 Blood Urea Nitrogen 12 9-23 mg/dL Creatinine 1.23 #H 0.550-1.02 mg/dL Glomerular Filtration Rate Calc 55 >90 mL/min BUN/Creatinine Ratio 9.8 L 10.0-20.0 Serum Glucose 92 74-106 mg/dL Calcium Level 9.5 8.7-10.4 mg/dL Current Medications Medications (Trade) Dose Ordered Sig/Brown Route Start Time Stop Time Status Last Admin Sodium Chloride 1,000 ml @ 1,000 mls/hr Q1H ONCE IV 08/26/25 11:45 08/26/25 12:44 DC 08/26/25 12:27 Ondansetron HCl (Zofran) 4 mg ONCE ONCE IV 08/26/25 11:45 08/26/25 11:46 DC 08/26/25 12:30 [place] [id number] Ph: [phone] DIAGNOSTIC IMAGING Diagnostic Imaging Report : [id number] Signed PATIENT: CLEMENT CHUCCT: [id number] UNIT: [id number] : 1980 LOC: ER ROOM / BED: / AGE / SEX: 45 / F ADM STATUS: REG ER SERVICE 1131 ORDERING PHYSICIAN: DELPHINE WELCH MD PROCEDURE(s): ABPL - CT AB PEL WO CON-NO ORAL OR IV REASON: colitis ORDER NUMBER(s): [id number], ACCESSION NUMBER(s): [id number] EXAM: CT CT AB PEL WO CON-NO ORAL OR IV HISTORY: colitis Comparison Study: CT CT AB PEL WO CON-NO ORAL OR IV on DOS: 08/16/25, US PELVIC TRANSABDOMINAL ONLY on DOS: 09/12/24 Exam Date: 08/26/2025 12:04 PM Radiation Dose Information: CT Dose: CTDI volume is 24 mGy. Dose-length product is 1379 mGy*cm TECHNIQUE: Multidetector CT of the abdomen and pelvis was performed. Imaging was performed without IV contrast. Axial, coronal and sagittal multiplanar reformats were obtained from the axial data set by the technologist. FINDINGS: Lack of intravenous contrast compromises evaluation of perfusion and for isodense lesions. Lower chest: Clear. Liver: Unchanged small hypodense lesion in the right hepatic lobe just above the brigitte hepatis. Biliary system: Surgically absent gallbladder Spleen: Unremarkable Pancreas: Unremarkable. Adrenals: Unremarkable. Kidneys and ureters: No hydronephrosis. Small nonobstructing calculus in the left upper pole. Bowel: No obstruction. Bladder: Unremarkable Reproductive organs: No abnormal mass. Lymph nodes: Unremarkable. Peritoneum: Unremarkable Vessels: Patency not evaluated on this noncontrast study. Bones and soft tissue: No aggressive osseous lesion IMPRESSION: No acute CT findings in the abdomen and pelvis. ATED BY: KIARA RUBI MD DICTATED DATE/TIME: 08/26/25 125 SIGNED BY: KIARA RUBI MD SIGNED DATE/TIME: 08/26/251250 CC: Patient alert. Vitals stable. Answering questions. Ambulating. Abdomen is soft nontender. CT scan of the abdomen reviewed does not show any acute process. WBC within normal limits. Mild urinary tract infection. Was given prescription of Macrobid antibiotic. Explained to the patient. Was told to follow up with her primary care physician. Was told to come back if there is any problem. Was told to follow up with her primary care physician. Was told to come back if there is any problem. Time of 1ST Reevaluation: 12:05 Reevaluation 1ST: Unchanged Patient Education/Counseling: Diagnosis, Treatment, Prognosis Family Education/Counseling: No Family Present SEPSIS Sepsis Screen Date sepsis recognized/suspect: Aug 26, 2025 Time Sepsis recognized/suspect: 1110 Recent Procedure: No On Antibiotic Therapy: No Respiratory Rate >20: No Heart Rate >90: No Temp<36 C (96.8 F) or >38.3 C: No SBP <90 or MAP <65 mmHG: No New Acute Mental Status Change: No Is the patient on CPAP, BIPAP,: No Physician Orders Sodium Chloride 0.9% (08/26/25 11:45) Blood Culture (08/26/25 11:31) Ct Ab Pel Wo Con-No Oral Or Iv (08/26/25 11:31) Ceftriaxone Ivpb Rocephin (08/26/25 16:45) Vital Signs Date Time Temp Pulse Resp B/P (MAP) Pulse Ox O2 Delivery O2 Flow Rate FiO2 08/26/25 15:00 98.1 88 17 138/75 (96) 97 98.1 08/26/25 12:10 98.6 99 16 109/72 (84) 95 98.6 08/26/25 11:10 98.4 108 20 99/79 98 98.4 Laboratory Tests Test 08/26/25 11:25 08/26/25 11:41 White Blood Count 7.3 10^3/uL (4.4-10.8) Lactic Acid Level 1.2 mmol/L (0.4-2.0) Medications Medications Dose Ordered Sig/Brown Route Start Time Stop Time Status Last Admin Dose Admin Ondansetron HCl 4 mg ONCE ONCE IV 08/26/25 11:45 08/26/25 11:46 DC 08/26/25 12:30 Sodium Chloride 1,000 ml @ 1,000 mls/hr Q1H ONCE IV 08/26/25 11:45 08/26/25 12:44 DC 08/26/25 12:27 Departure 1 Departure Time of Disposition: 16:48 Impression: Primary Impression: Gastroenteritis Disposition: 01 HOME / SELF CARE / HOMELESS Condition: Good e-Prescriptions Nitrofurantoin Monohydrate Mac (Macrobid) 100 Mg Cap 100 MG PO BID for 5 Days, #10 CAP Prov: DELPHINE WELCH MD 08/26/25 Discharged With: Self Critical Care Note Critical Care Time?: No Stability Stability form required: No Heart Score Heart Score: Heart Score Response (Comments) Value History N/A 0 EKG N/A 0 Age N/A 0 Risk Factors N/A 0 Troponin N/A 0 Total 0 I personally scribed for DELPHINE WELCH MD ([email or web address]) on 08/26/25 at 11:41. Electronically submitted by Allyn Rao ([email or web address]). I personally scribed for DELPHINE WELCH MD ([email or web address]) on 08/26/25 at 13:27. Electronically submitted by Allyn Rao [email or web address]). DELPHINE WELCH MD Aug 26, 2025 11:41
[2025-08-26 11:53] LABS: Hematocrit 41.5 % (36.0-46.0); Hemoglobin 14.2 g/dL (12.2-16.2); Mean Corpuscular Hemoglobin 29.4 pg (28.0-32.0); Mean Corpuscular Volume 85.8 fL (80.0-100.0); Nucleated Red Blood Cells % 0.0 %
[2025-08-26 12:01] LABS: Chloride 100 mmol/L (98-107); Sodium 136 mmol/L (136-145)
[2025-08-26 12:02] LABS: Anion Gap 10 (5-15); Calcium 9.5 mg/dL (8.7-10.4); Carbon Dioxide 26 mmol/L (20-31)
[2025-08-26 12:07] LABS: BUN/Creatinine Ratio 9.8 (10.0-20.0); Blood Urea Nitrogen 12 mg/dL (9-23); Glucose 92 mg/dL (74-106)
[2025-08-26 12:14] LABS: Potassium 3.5 mmol/L (3.5-5.1)
[2025-08-26] MEDS: SODIUM CHLORIDE 0.9% 1,000 ML IV ONE ×2 (12:27→12:31)
[2025-08-26] MEDS: ONDANSETRON HCL 4 MG/2 ML VIAL IV ONE (12:30)
--- NOTE | 2025-08-26 12:53 | DVH ---
EXAM: CT CT AB PEL WO CON-NO ORAL OR IV HISTORY: colitis Comparison Study: CT CT AB PEL WO CON-NO ORAL OR IV on DOS: 08/16/25, US PELVIC TRANSABDOMINAL ONLY on DOS: 09/12/24 Exam Date: 08/26/2025 12:04 PM Radiation Dose Information: CT Dose: CTDI volume is 24 mGy. Dose-length product is 1379 mGy*cm TECHNIQUE: Multidetector CT of the abdomen and pelvis was performed. Imaging was performed without IV contrast. Axial, coronal and sagittal multiplanar reformats were obtained from the axial data set by the technologist. FINDINGS: Lack of intravenous contrast compromises evaluation of perfusion and for isodense lesions. Lower chest: Clear. Liver: Unchanged small hypodense lesion in the right hepatic lobe just above the brigitte hepatis. Biliary system: Surgically absent gallbladder Spleen: Unremarkable Pancreas: Unremarkable. Adrenals: Unremarkable. Kidneys and ureters: No hydronephrosis. Small nonobstructing calculus in the left upper pole. Bowel: No obstruction. Bladder: Unremarkable Reproductive organs: No abnormal mass. Lymph nodes: Unremarkable. Peritoneum: Unremarkable Vessels: Patency not evaluated on this noncontrast study. Bones and soft tissue: No aggressive osseous lesion IMPRESSION: No acute CT findings in the abdomen and pelvis.
[2025-08-26 13:10] LABS: Urine Protein, UAD 1+ (Negative)
[2025-08-26] MEDS ORDERED: NITR-87 PO (16:49)
[2025-08-26 18:20] VITALS: BP 134/87; PULSE 64; RESP 16; TEMP 98.6; O2SAT 97
== END 2025-08-26 18:23 | disposition home or self-care (01) ==
LOC: ER 11:06
DX: K52.9 Noninfective gastroenteritis and colitis, unspecified (principal); I10 Essential (primary) hypertension; Z90.49 Acquired absence of other specified parts of digestive tract; Z90.710 Acquired absence of both cervix and uterus; Z79.899 Other long term (current) drug therapy
CPT/HCPCS: 36415; 74176; 80048; 81001; 83605; 85025; 87040; 96361; 96365; 96375; 99285; J0696; J2405; J7030